=== PATIENT | male | born 1940 | race Caucasian/White ===

== ENCOUNTER 2021-05-15 10:34 | Outpatient (CLI) | payer OTHER, SELFPAY ==
--- NOTE | ~2021-05-15 | XR_ITS ---
XR chest 2V DATE: 05/15/2021 11:00 INDICATION: Right sided pain, back pain TECHNIQUE: PA and lateral views COMPARISON: 09/14/2017 CT pulmonary scan 09/14/2017 PA and lateral chest FINDINGS: Normal heart size. Aortic arch and descending thoracic aortic calcification. Normal heart size. No hilar or mediastinal enlargement. The lungs are moderately hyperinflated but clear of infiltrate or consolidation. No pleural effusion or pulmonary vascular congestion or pneumothorax. IMPRESSION: Moderate hyperinflation; no active cardiopulmonary disease Aortic calcification Reviewed, dictated and finalized at location A.
== END 2021-05-15 10:35 | disposition home or self-care (01) ==
LOC: ANHIMG 10:41
PROVIDERS: PCP Internal Medicine; Visit Provider Internal Medicine
DX: M54.9 Dorsalgia, unspecified (principal); R91.8 Other nonspecific abnormal finding of lung field; I70.0 Atherosclerosis of aorta
CPT/HCPCS: 71046

== ENCOUNTER 2022-01-18 08:43 | Outpatient (CLI) | payer OTHER, SELFPAY ==
--- NOTE | ~2022-01-18 | XR_ITS ---
EXAMINATION: XR hip LT min 2V INDICATION: Left hip pain TECHNIQUE: Two views of the left hip are obtained. COMPARISON: None available FINDINGS: Bone alignment is normal. There is no fracture. Calcified atherosclerosis is noted. IMPRESSION: 1. No acute osseous abnormality. Reviewed, dictated and finalized at location A.
== END 2022-01-18 08:44 | disposition home or self-care (01) ==
PROVIDERS: PCP Internal Medicine; Visit Provider Internal Medicine
DX: M25.552 Pain in left hip (principal)
CPT/HCPCS: 73502

== ENCOUNTER 2022-02-27 08:52 | Outpatient (CLI) | payer OTHER, SELFPAY ==
--- NOTE | ~2022-02-27 | CT_ITS ---
EXAMINATION: CTA neck DATE: 02/27/2022 09:21 INDICATION: Carotid artery disease with stenosis. TECHNIQUE: Computed tomographic angiography (CTA) of the neck was performed with 100 mL Omnipaque-300 intravenous contrast. Multiplanar reconstructions and maximum intensity projection 3D-reconstruction s were created by the technologist on a separate workstation. Automated exposure control and iterativ e reconstruction technique were employed. The dose-length product was mGy-cm. COMPARISON: None. FINDINGS: There is 75% stenosis of the right carotid bulb relative to normal distal artery lumen diameter (NASC ET criteria). There is 60% stenosis of the left carotid bulb relative to normal distal artery lumen d iameter. Aortic arch is normal in caliber with small amount of nonhemodynamically significant atheros clerotic plaque. Vertebral arteries are codominant with additional scattered atherosclerotic plaque. There is likely moderate 50-70% stenosis at the origin of the left vertebral artery. 1.5 cm left thyr oid nodule. Cervical soft tissues are otherwise unremarkable. Emphysema the apices of lungs. Severe c ervical spondylosis. IMPRESSION: 1. 75% stenosis of the right carotid bulb relative to normal distal artery lumen diameter (NASCET cri teria). 2. 60% stenosis of the left carotid bulb relative to normal distal artery lumen diameter. 3. Moderate 50-70% stenosis at the origin of the left vertebral artery. Reviewed, dictated and finalized at location B. IMPRESSION: 1. 75% stenosis of the right carotid bulb relative to normal distal artery lume n diameter (NASCET criteria). 2. 60% stenosis of the left carotid bulb relative to normal distal artery lumen diameter. 3. Moderate 50-70% stenosis at the origin of the left vertebral artery.
[2022-02-27 09:15] LABS: Estimated Glomerular Filt Rate > 60
== END 2022-02-27 08:53 | disposition home or self-care (01) ==
PROVIDERS: PCP Internal Medicine; Visit Provider Internal Medicine
DX: I65.23 Occlusion and stenosis of bilateral carotid arteries (principal)
CPT/HCPCS: 70498; Q9967

== ENCOUNTER 2022-03-25 12:50 | Outpatient (CLI) | payer OTHER, SELFPAY | END 2022-03-25 12:51 | disposition home or self-care (01) | LOC: ANHAUDIO 12:51 | PROVIDERS: PCP Internal Medicine; Visit Provider Otolaryngology | DX: H90.A22 Sensorineural hearing loss, unilateral, left ear, with restricted hearing on the contralateral side (principal); H90.A31 Mixed conductive and sensorineural hearing loss, unilateral, right ear with restricted hearing on the contralateral side | CPT/HCPCS: 92557; 92567 ==

== ENCOUNTER 2022-05-28 17:20 | Emergency (ER) | payer OTHER, SELFPAY ==
[2022-05-28] VITALS (31 sets, daily range): BP systolic 135–164; BP diastolic 60–77; PULSE 62–83; RESP 12–18; TEMP 36.4; O2SAT 93–99
--- NOTE | ~2022-05-28 | CT_ITS ---
EXAMINATION: CT brain wo con DATE: 05/28/2022 17:50 INDICATION: syncope . TECHNIQUE: Computed tomography (CT) of the head was performed without intravenous contrast. The mA wa s adjusted according to patient size. Iterative reconstruction technique was employed. The dose-lengt h product was 605.33 mGy-cm. COMPARISON: 06/01/2019 FINDINGS: No acute intracranial hemorrhage or extra-axial fluid collection. No hydrocephalus, mass, or herniation. No acute ischemic infarct. Unremarkable dural venous sinus attenuation. No acute osseous abnormality. Mucosal thickening and opacification in the paranasal sinuses. The mastoid air cells are poorly pneum atized and contains small effusions. Moderate atrophy and chronic white matter change. Atherosclerotic intracranial calcification. Bilater al lens replacements. IMPRESSION: No acute intracranial process. Reviewed, dictated and finalized at location K.
--- NOTE | ~2022-05-28 | XR_ITS ---
EXAMINATION: XR chest 1V Exam Date/Time: 05/28/2022 17:48 CDT HISTORY: ams Comparison: 05/15/2021. RESULT: Lines, tubes, and devices: None. Lungs and pleura: Clear. Cardiomediastinal silhouette: Stable. Other: No acute osseous or upper abdominal finding. IMPRESSION: No acute cardiopulmonary process. Reviewed, dictated and finalized at location K.
--- NOTE | ~2022-05-28 | CT_ITS ---
Patient Name: Patient Name MR#: Patient MRN Accession#: Accession Numbers EXAMINATION: CTA brain carotid DATE: 05/28/2022 19:03 INDICATION: confusion, syncope TECHNIQUE: Computed tomographic angiography (CTA) of the head was performed withwith 100 mL Omnipaque -350 intravenous contrast. CTA of the neck was performed with intravenous contrast. The dose-length p roduct was 1209.03 mGy-cm. Maximum intensity projection and volume rendered 3D-reconstructions were c reated by the technologist on a separate workstation. COMPARISON: CT brain, same date. CTA neck 02/27/2022. CTA brain 06/01/2019. FINDINGS: CTA NECK: Aortic arch and proximal great vessels: Mild ectasia and arch calcification. Bovine arch. Calcified a nd noncalcified plaque in the brachiocephalic and bilateral subclavian arteries, without severe steno sis. Right common carotid, carotid bifurcation, and internal carotid artery: Calcified plaque at the right bifurcation.There is at least 75%% stenosis of the proximal right internal carotid artery relative t o normal distal artery lumen diameter (NASCET criteria), unchanged. Left common carotid, carotid bifurcation, and internal carotid artery: Calcified plaque at the caroti d bifurcation.There is 60% stenosis of the proximal left internal carotid artery relative to normal d istal artery lumen diameter (NASCET criteria), unchanged. Vertebral arteries: Mild right and moderate-severe left origin stenosis. Nonsignificant calcified patricia ques in the mid and distal bilateral vertebral arteries. Codominant vertebral arteries. Other findings: 12 mm left thyroid nodule. Severe cervical spondylosis. CTA HEAD: No large vessel occlusion, aneurysm, high flow vascular malformation, nidus or extravasation. Bilater al cavernous carotid calcifications, with moderate stenosis on the left. Petrous carotid calcific patricia ques on the right. Posterior communicating arteries not identified. IMPRESSION: 1. No large vessel occlusion. 2. At least 75% stenosis of the right carotid bulb relative to normal distal artery lumen diameter ( NASCET criteria). 60% stenosis of the left carotid bulb. Both stenoses are stable since the prior estefani dy of 02/27/2022. 3. Moderate-severe left vertebral artery origin stenosis. Reviewed, dictated and finalized at location K. IMPRESSION: 1. No large vessel occlusion. 2. At least 75% stenosis of the right carotid bulb relative to normal distal a rtery lumen diameter (NASCET criteria). 60% stenosis of the left carotid bulb. Both stenoses are stable since the prior study of 02/27/2022. 3. Moderate-severe left vertebral artery origin stenosis.
--- NOTE | 2022-05-28 17:33 | ED.NEUROSD ---
HPI - Neuro Symptoms/Deficit General Chief Complaint: Neuro Symptoms/Deficit Stated Complaint: PALE DIAPHORETIC History of Present Illness HPI Narrative: Patient is a 81-year-old male with history of hypertension, hyperlipidemia presenting to the emergency department for evaluation of potential syncopal event, altered mental status that is resolved at the time of assessment. Reportedly, patient was at [facility] obtaining a CTA brain, neck, diagnosed with carotid stenosis bilaterally, and was home after he had eaten dinner. Patient states that he then remembers being awakened by EMS personnel. Reportedly, patient's witnessed the patient become confused, diaphoretic with loss of consciousness. She stated that the patient's eyes rolled in the back of his head and his face was drooping. Patient apparently did have urinary incontinence. Patient at the time of my assessment is back to baseline denying any acute complaints of pain, numbness, weakness. Related Data Home Medications Medication Instructions Recorded Confirmed amlodipine 10 mg tablet 10 mg PO DAILY 01/30/22 04/25/22 aspirin 81 mg capsule 81 mg PO DAILY 01/30/22 04/25/22 clopidogrel 75 mg tablet 75 mg PO DAILY 01/30/22 04/25/22 metoprolol tartrate 25 mg tablet 25 mg PO BID 01/30/22 04/25/22 pantoprazole 40 mg tablet,delayed 40 mg PO QAM 01/30/22 04/25/22 release pravastatin 40 mg tablet 40 mg PO DAILY 01/30/22 04/25/22 tacrolimus 0.1 % topical ointment 1 applic topical BID 01/30/22 04/25/22 triamcinolone acetonide 0.1 % 1 applic topical BID 01/30/22 04/25/22 topical cream Allergies Allergy/AdvReac Type Severity Reaction Status Date / Time No Known Allergies Allergy Verified 05/28/22 17:26 Review of Systems Review of Systems: CONSTITUTIONAL: Denies fever, chills, reports diaphoresis EYES: Denies visual changes, redness, or discharge. ENT: Denies rhinorrhea, congestion, sore throat, or otalgia. CARDIOVASCULAR: Denies chest pain, palpitations, or edema. RESPIRATORY: Denies cough or dyspnea. GASTROINTESTINAL: Denies abdominal pain, nausea, vomiting, or diarrhea. GENITOURINARY: Denies dysuria or hematuria. SKIN: Denies rash or itching. MUSCULOSKELETAL: Denies back pain, joint pain, or myalgia. NEUROLOGIC: Denies headache, numbness, or weakness. [facility] Past Medical History Medical History CAD (coronary artery disease) Cataract Surgical History Surgical History H/O heart artery stent H/O rotator cuff surgery H/O vasectomy History of back surgery History of knee surgery Right TKA 2006 Family History Family History Mother Hypertension Sibling Heart disease Father Family history of prostate cancer in father Social History Social History Smoking status: Current every day smoker Tobacco type: cigarettes Alcohol intake: current Substance use: never Gender identity (if verbalized by the patient): Male Exam Narrative: GENERAL: Awake, alert, conversant HEAD: Normocephalic, atraumatic. EYES: PERRLA and EOMI. ENT: Nares clear, no rhinorrhea or epistaxis. Mucous membranes moist. NECK: Supple. CHEST: No respiratory distress, breathing even and non labored HEART: Regular rate, sinus rhythm ABDOMEN:Non distended, non tender EXTREMITIES: Normal range of motion. No edema. SKIN: Warm, dry, no rash. NEURO:No focal deficits. Alert and oriented x3. Finger to nose intact bilaterally. EOMs intact without nystagmus. No facial droop/asymmetry noted bilaterally. Grimace intact. Intact sensation in face. Hearing intact bilaterally. Shoulder shrug intact. Strength 5/5 bilateral upper extremities. Strength 5/5 bilateral lower extremities. Reflexes 2+ patellar. Heel to boo intact bilaterally. Ambulatory exam deferred. NIHSS s
--- NOTE | 2022-05-28 17:42 | ECG_ITS ---
Measurements Intervals [place] Rate: 64 P: 63 TN: 168 QRS: 40 QRSD: 94 T: 60 QT: 437 QTc: 452 Interpretive Statements SINUS RHYTHM WITH OCCASIONAL VENTRICULAR PREMATURE COMPLEXES RSR' V1 AND V2 BORDERLINE ECG NO PREVIOUS ECG AVAILABLE FOR COMPARISON Electronically Signed On 05-28-2022 18:30:27 CDT by Jacques Dumont M.D.
[2022-05-28] MEDS: SODIUM CHLORIDE 0.9% IV 1,000 ML 999 ML IV CONT (17:56)
[2022-05-28 18:00] LABS: Alveolar/Arterial O2 Gradient 21.3 mmHg; Base Excess ABG -1.3 mEq/l (+/-2.0); Carboxyhemoglobin 0.2 % THb (0-2.0); Device ROOM AIR; Fractional Inspired Oxygen 21 %; HCO3 ABG 22.7 mEq/l (22.0-26.0); Methemoglobin ABG 0.1 %THb (0-1.5); Modified Allen's Test Pass; Oxygen Saturation ABG 96.8 % (95.0-100.0); Oxyhemoglobin 95.6 % THb (90.0-100.0); PCO2 ABG 35.4 mmHg (35.0-45.0); Reduced Hemoglobin 4.1 %THb (0-5.0); Site Drawn RIGHT RADIAL; Total Hemoglobin 12.6 g/dL (12.0-18.0); pH ABG 7.424 (7.350-7.450)
[2022-05-28 18:05] LABS: Basophils Absolute Auto 0.1 K/mm3 (0.0-0.1); Basophils Percent Auto 0.7 % (0.2-1.2); Eosinophils Absolute Auto 0.4 K/mm3 (0-0.3); Eosinophils Percent Auto 4.2 % (0-4.4); Hematocrit 37.1 % (42.0-52.0); Hemoglobin 12.3 g/dL (14.0-18.0); Immature Granulocyte Absolute 0.04 K/mm3 (0.00-0.031); Immature Granulocyte Percent A 0.5 % (0-0.5); Lymphocytes Absolute Auto 2.55 K/mm3 (0.9-3.2); Lymphocytes Percent Auto 29.8 % (18.3-44.2); Mean Corpuscular HGB Conc 33.2 g/dl (32-36); Mean Corpuscular Hemoglobin 32.5 pg (26-34); Mean Corpuscular Volume 98.1 fl (80-100); Mean Platelet Volume 9.7 fl (7.4-10.4); Monocytes Absolute Auto 0.9 K/mm3 (0.1-0.6); Monocytes Percent Auto 10.9 % (2.6-8.5); Neutrophils Absolute Auto 4.6 K/mm3 (1.3-6.7); Neutrophils Percent Auto 53.9 % (45.5-73.1); Platelet Count Result 326 k/mm3 (150-375); Red Blood Count 3.78 M/mm3 (4.6-6.20); Red Cell Distribution Width 12.4 % (11.5-14.5); White Blood Count 8.6 K/mm3 (4.5-10.0)
[2022-05-28 18:19] LABS: Alanine Aminotransferase 22 U/L (6-50); Albumin Level 4.2 g/dL (3.5-5.1); Alkaline Phosphatase 56 U/L (38-126); Anion Gap 11 mmol/L (8-16); Aspartate Amino Transferase 25 U/L (17-59); Bilirubin,Total 0.4 mg/dL (0.2-1.3); Blood Urea Nitrogen 15 mg/dL (9-20); Carbon Dioxide 22 mmol/L (22-30); Chloride 100 mmol/L (98-107); Estimated Glomerular Filt Rate > 60; Glucose 130 mg/dL (65-110); Potassium 3.4 mmol/L (3.4-5.0); Sodium 133 mmol/L (137-145)
[2022-05-28 18:22] LABS: INR 1.1; Prothrombin Time 14.2 Seconds (11.1-14.7)
[2022-05-28 18:23] LABS: Partial Thromboplastin Time 22.8 SECONDS (22.3-36.8)
[2022-05-28 18:29] LABS: Troponin I < 0.012 ng/mL (0.000-0.034)
[2022-05-28 18:34] LABS: Procalcitonin 0.1 ng/mL
[2022-05-28 18:42] LABS: SARS-CoV-2 RNA PCR Negative
--- NOTE | 2022-05-28 19:05 | PC.NURSE ---
RN accidently marked Urine as collected
[2022-05-28 19:38] LABS: Appearance Urine Clear (Clear); Bilirubin Urine 1+ (Negative); Blood Urine Negative (Negative); Color Urine Yellow (Yellow); Glucose Urine UA Negative (Negative); Ketones Urine Negative (Negative); Leukocyte Esterase Ur Negative LEU/UL (Negative); Nitrate Urine Negative (Negative); Protein Urine 1+ mg/dL (Negative); Specific Grav Ur <= 1.005 (1.001-1.035); Urobilinogen Urine 0.2 mg/dL (<2.0); pH Urine 5.5 (5.0-9.0)
[2022-05-28 19:44] LABS: Bacteria Urine Trace /hpf; Mucus Urine Rare /lpf; Squamous Epithelial Cell Urine Rare /hpf (Few); WBC Urine 0-3 /hpf
[2022-05-28 19:46] LABS: Add Urine Microscopic? YES
--- NOTE | 2022-05-28 21:53 | PC.NURSE ---
[facility] called for transfer info at this time.
[2022-05-29] VITALS (12 sets, daily range): BP systolic 111–158; BP diastolic 67–86; PULSE 67–85; RESP 11–17; O2SAT 94–98
--- NOTE | 2022-05-29 01:17 | PC.NURSE ---
La RN at [facility] called at [phone] and report called at this time.
--- NOTE | 2022-05-29 01:58 | PC.NURSE ---
[facility] here for transfer to [facility]. Hospital called at this time and made aware of EMYJose Alivia, , updated with transfer and bed number.
== END 2022-05-29 01:55 | disposition short-term general hospital (02) ==
PROVIDERS: Emergency Provider Emergency Medicine; PCP Internal Medicine
DX: R55 Syncope and collapse (principal); I65.23 Occlusion and stenosis of bilateral carotid arteries; Z20.822 Contact with and (suspected) exposure to COVID-19; I10 Essential (primary) hypertension; E78.5 Hyperlipidemia, unspecified; I25.10 Atherosclerotic heart disease of native coronary artery without angina pectoris; Z79.82 Long term (current) use of aspirin; Z95.5 Presence of coronary angioplasty implant and graft; Z96.651 Presence of right artificial knee joint; F17.210 Nicotine dependence, cigarettes, uncomplicated; I49.3 Ventricular premature depolarization
CPT/HCPCS: 36415; 36600; 70450; 70496; 70498; 71045; 80053; 81001; 82375; 82805; 83050; 84145; 84484; 85025; 85610; 85730; 93005; 96360; 99285; C9803; J7030; Q9967; U0003; U0005

== ENCOUNTER 2023-02-21 08:30 | Outpatient (RCR) | payer OTHER, SELFPAY | END 2023-02-21 23:59 | disposition home or self-care (01) | LOC: ANHAUDIO 08:30 | PROVIDERS: PCP Internal Medicine; Visit Provider Internal Medicine | DX: Z46.1 Encounter for fitting and adjustment of hearing aid (principal) | CPT/HCPCS: 99199; V5261 ==

== ENCOUNTER 2023-07-29 00:14 | Day surgery (SDC) | payer OTHER, SELFPAY ==
[2023-07-22 11:51] VITALS: BMI 29.6
--- NOTE | 2023-07-29 11:13 | PM.HPGS ---
History of Present Illness History of Present Illness Consent: Risks, benefits, and alternatives have been discussed and questions answered. Patient agrees to proceed with procedure. Chief complaint: positive cologuard test Narrative: Wan Obrien is a 82 year old male Referred for colonoscopy. Patient recently found to have positive screening Cologuard test. Patient denies any blood in his stools. Weight appetite bowel movements are reported to be normal. Patient does have a history of atherosclerotic heart disease and peripheral vascular disease. He has had heart and vascular stents placed in the past. He is on Plavix and aspirin on regular basis. Family history is noncontributory. There is no known history of colon or rectal disease. Review of Systems Review of Systems: Review of systems noncontributory. [facility] Past Medical History Medical History CAD (coronary artery disease) Cataract Surgical History Surgical History H/O heart artery stent H/O rotator cuff surgery H/O vasectomy History of back surgery History of knee surgery Right TKA 2006 Family History Family History Mother Hypertension Sibling Heart disease Father Family history of prostate cancer in father Social History Social History Smoking packs per day: 1 Smoking cigarettes per day: 20.0 Years smoked: 60 Smoking pack-years: 60.00 Smoking status: Current every day smoker Tobacco type: cigarettes Additional smoking assessment comments: DOWN TO 10 CIG. A DAY Alcohol intake: current Drinks per week: 16 Alcohol use details: BEEERS AND COCKTAILS Substance use: never Substance use type: does not use Living arrangements: with family Occupation/Education: retired Gender identity (if verbalized by the patient): Male Spiritual care concerns: No Meds Home Medications and Allergies Home Medications Medication Instructions Recorded Confirmed Type amlodipine 10 mg tablet 10 mg PO DAILY 01/30/22 07/29/23 History aspirin 81 mg capsule 81 mg PO DAILY 01/30/22 07/29/23 History clopidogrel 75 mg tablet 75 mg PO DAILY 01/30/22 07/29/23 History metoprolol tartrate 25 mg tablet 25 mg PO BID 01/30/22 07/29/23 History pantoprazole 40 mg tablet,delayed 40 mg PO QAM 01/30/22 07/29/23 History release pravastatin 40 mg tablet 40 mg PO DAILY 01/30/22 07/29/23 History tacrolimus 0.1 % topical ointment 1 applic topical BID 01/30/22 07/29/23 History triamcinolone acetonide 0.1 % 1 applic topical BID 01/30/22 07/22/23 History topical cream Allergies Allergy/AdvReac Type Severity Reaction Status Date / Time CONTRAST Allergy Severe Fainting Uncoded 07/29/23 11:10 Exam Narrative: Physical exam reveals patient to be alert. Vital signs stable. HEENT exam is unremarkable. Patient is anicteric. Lungs are clear to auscultation and percussion. Heart is without murmur or extra sounds. Abdomen bowel sounds are present soft nontender with no organomegaly. Digital external rectal exam normal. Assessment and Plan Assessment and plan (1) Positive colorectal cancer screening using Cologuard test: Code(s): R19.5 - Other fecal abnormalities Status: Acute Assessment and Plan: Patient found to have a positive Cologuard test referred for colonoscopy. Further recommendations may be given after endoscopy.
[2023-07-29 11:22] VITALS: BP 121/58; PULSE 65; RESP 18; TEMP 36.4; O2SAT 98
--- NOTE | 2023-07-29 11:26 | P.PNAN_ITS ---
Anes - Initial Pre Proc Eval Procedure: Operation Date: 07/29/23 12:30 Proposed Procedures p Colonoscopy - Chepe Merino MD Date/Time: 07/29/23 11:26 Surgeon: Chepe Merino MD Pre Op Diagnosis: positive cologuard test Patient Data Age: 82 Gender: M Height: 1.75 m Weight: 91 kg Allergies Allergy/AdvReac Type Severity Reaction Status Date / Time CONTRAST Allergy Severe Fainting Uncoded 07/29/23 11:10 Home Medications Medication Instructions Recorded Confirmed Type amlodipine 10 mg tablet 10 mg PO DAILY 01/30/22 07/29/23 History aspirin 81 mg capsule 81 mg PO DAILY 01/30/22 07/29/23 History clopidogrel 75 mg tablet 75 mg PO DAILY 01/30/22 07/29/23 History metoprolol tartrate 25 mg tablet 25 mg PO BID 01/30/22 07/29/23 History pantoprazole 40 mg tablet,delayed 40 mg PO QAM 01/30/22 07/29/23 History release pravastatin 40 mg tablet 40 mg PO DAILY 01/30/22 07/29/23 History tacrolimus 0.1 % topical ointment 1 applic topical BID 01/30/22 07/29/23 History triamcinolone acetonide 0.1 % 1 applic topical BID 01/30/22 07/22/23 History topical cream Patient hx anesthesia problems: none Family hx anesthesia problems: none Results Review: All pre-operative results and documents have been reviewed as part of the pre- operative evaluation. [facility] Past Medical History Medical History CAD (coronary artery disease) Cataract Surgical History Surgical History H/O heart artery stent H/O rotator cuff surgery H/O vasectomy History of back surgery History of knee surgery Right TKA 2006 Family History Family History Mother Hypertension Sibling Heart disease Father Family history of prostate cancer in father Social History Social History Smoking packs per day: 1 Smoking cigarettes per day: 20.0 Years smoked: 60 Smoking pack-years: 60.00 Smoking status: Current every day smoker Tobacco type: cigarettes Additional smoking assessment comments: DOWN TO 10 CIG. A DAY Alcohol intake: current Drinks per week: 16 Alcohol use details: BEEERS AND COCKTAILS Substance use: never Substance use type: does not use Living arrangements: with family Occupation/Education: retired Gender identity (if verbalized by the patient): Male Spiritual care concerns: No Anes - Eval Final PreProcedure Day of Procedure 07/29/23 11:26 Patient weight: normal Heart: regular rate and rhythm Lungs: clear to auscultation Airway: Mallampati scale class III Neurological: alert and oriented Last oral intake: >/= 8 hours ASA classification: III Emergent: no Anesthetic plan: proceed Anesthesia type and monitoring: general GIVS and standard monitoring Results Review: All pre-operative results and documents have been reviewed as part of the pre- operative evaluation. Informed Consent: The patient's anesthetic plan and its attendant risks and benefits were discussed with the patient/family/POA. Questions were solicited and answers provided to the satisfaction of the patient/family/POA.
[2023-07-29] MEDS: LACTATED RINGERS 1,000 ML 150 ML IV CONT (11:37)
[2023-07-29 12:44] VITALS: BP 117/62; PULSE 57; RESP 28; O2SAT 98
[2023-07-29 12:54] VITALS: BP 141/70; PULSE 58; RESP 15; O2SAT 99
[2023-07-29 13:04] VITALS: BP 144/69; PULSE 62; RESP 17; O2SAT 99
== END 2023-07-29 13:09 | disposition home or self-care (01) ==
PROVIDERS: PCP Internal Medicine; Visit Provider Internal Medicine Gastroenterology
PROC: 0DJD8ZZ Inspection of Lower Intestinal Tract, Via Natural or Artificial Opening Endoscopic (ICD-10-PCS; CPT 45378; principal; 2023-07-29 12:30)
DX: R19.5 Other fecal abnormalities (principal); D12.2 Benign neoplasm of ascending colon; D12.5 Benign neoplasm of sigmoid colon; K64.8 Other hemorrhoids; I25.10 Atherosclerotic heart disease of native coronary artery without angina pectoris; I73.9 Peripheral vascular disease, unspecified; Z79.82 Long term (current) use of aspirin; Z79.02 Long term (current) use of antithrombotics/antiplatelets; Z95.5 Presence of coronary angioplasty implant and graft; F17.210 Nicotine dependence, cigarettes, uncomplicated; Z95.820 Peripheral vascular angioplasty status with implants and grafts
CPT/HCPCS: 45385; 88305; J2704; J7120

== ENCOUNTER 2023-08-26 10:02 | Emergency (ER) | payer OTHER, SELFPAY ==
[2023-08-26 10:09] VITALS: BP 166/78; PULSE 79; RESP 16; TEMP 36.8; O2SAT 98
--- NOTE | 2023-08-26 10:23 | ED.WOUNDLAC ---
HPI - Wound/Laceration General Chief Complaint: Wound/Laceration Stated Complaint: Wound Right Leg Time Seen by Provider: 08/26/23 10:23 Source: patient, RN notes reviewed and old records reviewed Mode of arrival: ambulatory Limitations: no limitations History of Present Illness HPI narrative: 83-year-old male presents to the [facility] with a wound to the right lower leg. 1-2 weeks ago hit his leg on something. States it bruised and had a skin tear. Has been cleaning it and putting Band-Aids on it. Pulled off a Band-Aid and developed to open wounds, superficial, skin tears Related Data Home Medications Medication Instructions Recorded Confirmed amlodipine 10 mg tablet 10 mg PO DAILY 01/30/22 07/29/23 aspirin 81 mg capsule 81 mg PO DAILY 01/30/22 07/29/23 clopidogrel 75 mg tablet 75 mg PO DAILY 01/30/22 07/29/23 metoprolol tartrate 25 mg tablet 25 mg PO BID 01/30/22 07/29/23 pantoprazole 40 mg tablet,delayed 40 mg PO QAM 01/30/22 07/29/23 release pravastatin 40 mg tablet 40 mg PO DAILY 01/30/22 07/29/23 Allergies Allergy/AdvReac Type Severity Reaction Status Date / Time CONTRAST Allergy Severe Fainting Uncoded 08/26/23 10:04 Review of Systems Review of Systems: All systems reviewed & are unremarkable except as noted in HPI and below Constitutional: Constitutional: Reports no additional constitutional complaints Eyes: Eyes: Reports no additional eye complaints ENT: Reports system reviewed and no additional complaints, except as documented Cardiovascular: Cardiovascular: Reports no additional cardiovascular complaints, Denies chest pain and Denies dyspnea Respiratory: Respiratory: Reports no additional respiratory complaints, Denies chest congestion, Denies cough and Denies dyspnea Gastrointestinal: Gastrointestinal: Reports no additional gastrointestinal complaints, Denies abdominal pain, Denies nausea and Denies vomiting Musculoskeletal: Musculoskeletal: Reports no additional musculoskeletal complaints Integumentary/Breasts: Skin/Breast: Reports as per HPI Neurologic: Reports system reviewed and no additional complaints, except as documented Psychiatric: Psychiatric: Reports no additional psychiatric complaints Allergic/Immunologic: Allergic/Immunologic: Reports no additional allergic/immunologic complaints PMFSH Past Medical History Medical History CAD (coronary artery disease) Cataract Surgical History Surgical History H/O heart artery stent H/O rotator cuff surgery H/O vasectomy History of back surgery History of knee surgery Right TKA 2006 Family History Family History Mother Hypertension Sibling Heart disease Father Family history of prostate cancer in father Social History Social History Smoking packs per day: 1 Smoking cigarettes per day: 20.0 Years smoked: 60 Smoking pack-years: 60.00 Smoking status: Current every day smoker Tobacco type: cigarettes Additional smoking assessment comments: DOWN TO 10 CIG. A DAY Alcohol intake: current Drinks per week: 16 Alcohol use details: BEEERS AND COCKTAILS Substance use: never Substance use type: does not use Living arrangements: with family Occupation/Education: retired Gender identity (if verbalized by the patient): Male Spiritual care concerns: No Comments At the time of my signature, I reviewed and agree with the nursing past medical, surgical, social, and family history. There is no relevant family history pertinent to the patient complaint. Exam Const: General: cooperative, healthy appearing, comfortable, no acute distress, well developed, alert and well nourished Nutritional Appearance: well nourished Orientation/consciousness: patient oriented x3 Limitations: no limitations
== END 2023-08-26 10:47 | disposition home or self-care (01) ==
PROVIDERS: Emergency Provider Nurse Practitioner; PCP Internal Medicine
DX: S81.801A Unspecified open wound, right lower leg, initial encounter (principal); I25.10 Atherosclerotic heart disease of native coronary artery without angina pectoris; F17.210 Nicotine dependence, cigarettes, uncomplicated; X58.XXXA Exposure to other specified factors, initial encounter
CPT/HCPCS: 99213; G0463

== ENCOUNTER 2023-09-22 10:13 | Emergency (ER) | payer OTHER, SELFPAY ==
--- NOTE | ~2023-09-22 | XR_ITS ---
EXAMINATION: XR chest 2V DATE: 09/22/2023 10:56 INDICATION: Chest pain TECHNIQUE: PA and lateral views of the chest are obtained. COMPARISON: 05/08/2022 FINDINGS: The lungs are free of acute opacities. No pleural effusion or pneumothorax. The cardiomedia stinal silhouette is normal. There is moderate thoracic spondylosis. A cardiac loop recorder has been inserted in the left anterior chest wall. IMPRESSION: 1. No acute cardiopulmonary abnormality. Reviewed, dictated and finalized at location B. M PROFESSIONAL
--- NOTE | 2023-09-22 10:13 | ECG_ITS ---
Measurements Intervals [place] Rate: 75 P: 64 OR: 164 QRS: 42 QRSD: 93 T: 66 QT: 373 QTc: 419 Interpretive Statements SINUS RHYTHM RSR' V1 V2 BORDERLINE ECG COMPARED TO ECG 05/28/2022 17:28:43 NO SIGNIFICANT CHANGES Electronically Signed On 09-22-2023 17:14:30 ALGEBRAIST by Jacques Dumont M.D.
[2023-09-22 10:16] VITALS: BP 143/65; PULSE 73; RESP 18; TEMP 36.5; O2SAT 99
[2023-09-22 10:27] LABS: Basophils Absolute Auto 0.1 K/mm3 (0.0-0.1); Basophils Percent Auto 0.9 % (0.2-1.2); Eosinophils Absolute Auto 0.2 K/mm3 (0-0.3); Eosinophils Percent Auto 2.8 % (0-4.4); Hematocrit 39.4 % (42.0-52.0); Hemoglobin 12.5 g/dL (14.0-18.0); Immature Granulocyte Absolute 0.02 K/mm3 (0.00-0.031); Immature Granulocyte Percent A 0.3 % (0-0.5); Lymphocytes Absolute Auto 1.98 K/mm3 (0.9-3.2); Lymphocytes Percent Auto 25.4 % (18.3-44.2); Mean Corpuscular HGB Conc 31.7 g/dl (32-36); Mean Corpuscular Hemoglobin 30.8 pg (26-34); Mean Platelet Volume 9.2 fl (7.4-10.4); Monocytes Absolute Auto 0.7 K/mm3 (0.1-0.6); Monocytes Percent Auto 8.6 % (2.6-8.5); Neutrophils Absolute Auto 4.8 K/mm3 (1.3-6.7); Platelet Count Result 324 k/mm3 (150-375); Red Blood Count 4.06 M/mm3 (4.6-6.20); Red Cell Distribution Width 12.5 % (11.5-14.5); White Blood Count 7.8 K/mm3 (4.5-10.0)
[2023-09-22 10:37] LABS: Alanine Aminotransferase 23 U/L (6-50); Albumin Level 4.7 g/dL (3.5-5.1); Alkaline Phosphatase 78 U/L (38-126); Anion Gap 12 mmol/L (8-16); Aspartate Amino Transferase 34 U/L (17-59); Bilirubin,Total 0.7 mg/dL (0.2-1.3); Blood Urea Nitrogen 17 mg/dL (9-20); Calcium 9.3 mg/dL (8.4-10.2); Carbon Dioxide 21 mmol/L (22-30); Chloride 99 mmol/L (98-107); Estimated CRCL calculation 56 ml/min; Estimated Glomerular Filt Rate > 60; Glucose 121 mg/dL (65-110); Lipase 74 U/L (23-300); Potassium 4.1 mmol/L (3.4-5.0); Sodium 132 mmol/L (137-145)
[2023-09-22 10:40] LABS: INR 1.1; Prothrombin Time 14.5 Seconds (11.1-14.7)
[2023-09-22 10:41] LABS: Partial Thromboplastin Time 26.4 SECONDS (22.3-36.8)
[2023-09-22 10:49] LABS: Troponin I < 0.012 ng/mL (0.000-0.034)
[2023-09-22 10:59] VITALS: PULSE 75; O2SAT 100
[2023-09-22 11:01] VITALS: BP 141/71; PULSE 72; RESP 19; O2SAT 99
[2023-09-22] MEDS: BELLADONNA ALK/PHENOB ELIX 10 ML, MAG HYDROX/ALUMINUM HYD/SIMETH 30 ML, LIDOCAINE HCL 2... PO (11:44)
--- NOTE | 2023-09-22 12:06 | ED.GENADULT ---
HPI - General Adult General Chief complaint: Chest Pain Stated complaint: Chest pain Time Seen by Provider: 09/22/23 10:48 History of Present Illness HPI narrative: Patient is an 83-year-old male who presents ER with central chest discomfort. Aching over last week. Constant. Improved on occasion with oxycodone or Tylenol/ ibuprofen. Worse with lying down flat. Unsure if it so she with eating or drinking. Has not tried any tums. Has been attempting to schedule follow-up with his practical nurse before he leaves [facility] on Friday. Related Data Home Medications Medication Instructions Recorded Confirmed amlodipine 10 mg tablet 10 mg PO DAILY 01/30/22 07/29/23 aspirin 81 mg capsule 81 mg PO DAILY 01/30/22 07/29/23 clopidogrel 75 mg tablet 75 mg PO DAILY 01/30/22 07/29/23 metoprolol tartrate 25 mg tablet 25 mg PO BID 01/30/22 07/29/23 pantoprazole 40 mg tablet,delayed 40 mg PO QAM 01/30/22 07/29/23 release pravastatin 40 mg tablet 40 mg PO DAILY 01/30/22 07/29/23 Allergies Allergy/AdvReac Type Severity Reaction Status Date / Time CONTRAST Allergy Severe Fainting Uncoded 08/26/23 10:04 Review of Systems Review of Systems: All systems reviewed & are unremarkable except as noted in HPI and below Constitutional: Constitutional: Reports no additional constitutional complaints ENT: Reports system reviewed and no additional complaints, except as documented Cardiovascular: Cardiovascular: Reports chest pain, Denies rapid heart rate, Denies radiating jaw, neck or arm pain and Denies slow heart rate Respiratory: Respiratory: Reports no additional respiratory complaints Gastrointestinal: Gastrointestinal: Denies abdominal pain, Reports heartburn, Denies nausea and Denies vomiting Genitourinary: Genitourinary: Reports no additional male genitourinary complaints [facility] Past Medical History Medical History CAD (coronary artery disease) Cataract Surgical History Surgical History H/O heart artery stent H/O rotator cuff surgery H/O vasectomy History of back surgery History of knee surgery Right TKA 2006 Family History Family History Mother Hypertension Sibling Heart disease Father Family history of prostate cancer in father Social History Social History Smoking packs per day: 1 Smoking cigarettes per day: 20.0 Years smoked: 60 Smoking pack-years: 60.00 Smoking status: Current every day smoker Tobacco type: cigarettes Additional smoking assessment comments: DOWN TO 10 CIG. A DAY Alcohol intake: current Drinks per week: 16 Alcohol use details: [employer] Substance use: never Substance use type: does not use Living arrangements: with family Occupation/Education: retired Gender identity (if verbalized by the patient): Male Spiritual care concerns: No Exam Narrative: GENERAL: Well-appearing, well-nourished, and in no acute distress. HEAD: Normocephalic, atraumatic. EYES: PERRL and EOMI. ENT: Mucous membranes moist. CHEST: Clear to auscultation. No respiratory distress. HEART: Regular rate and rhythm. Normal peripheral pulses. ABDOMEN: Soft, nontender, nondistended. EXTREMITIES: Normal range of motion. No edema. SKIN: Warm, dry, no rash. NEURO: Alert and oriented x3. PSYCH: Normal mood and affect. Course Course Emergency Course: Patient resting comfortably. Mild improvement with GI cocktail. Troponin negative x2. He has been on the phone with his practical nurse and is scheduled to see them tomorrow. Patient will be discharged. Vital Signs Vital signs: Vital Signs Temperature 97.7 F 09/22/23 10:16 Pulse Rate 73 09/22/23 10:16 Respiratory Rate 18 09/22/23 10:16 Blood Pressure 143/65 H 09/22/23 10:16 Pulse Oximetry
--- NOTE | 2023-09-22 13:17 | ECG_ITS ---
Measurements Intervals [place] Rate: 59 P: 39 NV: 173 QRS: 18 QRSD: 92 T: 44 QT: 433 QTc: 431 Interpretive Statements SINUS BRADYCARDIA BORDERLINE ECG COMPARED TO ECG 09/22/2023 10:17:35 SINUS BRADYCARDIA NOW PRESENT Electronically Signed On 09-22-2023 17:23:01 [employer] by Jacques Dumont M.D.
[2023-09-22 13:46] LABS: Troponin I < 0.012 ng/mL (0.000-0.034)
[2023-09-22 15:04] VITALS: BP 138/86; PULSE 86; RESP 16; O2SAT 98
== END 2023-09-22 15:05 | disposition home or self-care (01) ==
PROVIDERS: Emergency Provider Emergency Medicine; PCP Internal Medicine
DX: R07.89 Other chest pain (principal); I25.10 Atherosclerotic heart disease of native coronary artery without angina pectoris; F17.210 Nicotine dependence, cigarettes, uncomplicated
CPT/HCPCS: 36415; 71046; 80053; 83690; 84484; 85025; 85610; 85730; 93005; 99284; A9270

== ENCOUNTER 2024-06-02 10:52 | Outpatient (CLI) | payer OTHER, SELFPAY ==
--- NOTE | ~2024-06-02 | XR_ITS ---
Lumbosacral Spine: AP and lateral views Clinical History: Pain Findings: No acute fracture seen. There is 6 mm anterolisthesis of L3 over L4. There is 9 mm anteroli sthesis of L5 over S1. Questionable L5 pars interarticularis defects. There is severe degenerative di sc narrowing from L2 through S1. There is severe facet arthropathy throughout the lumbar spine. The s acroiliac joints are normally outlined. There are extensive atherosclerotic calcifications of the aor ta. Impression: Possible L5 pars intraarticular defects, with 9 mm anterolisthesis of L5 over S1. 6 mm anterolisthesis of L3 over L4. Diffuse, severe degenerative spondylosis, as above. Reviewed, dictated and finalized at location M. 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 6 mm anterolisthesis of L3 over L4. Diffuse, severe degenerative spondylosis, as above.
== END 2024-06-02 10:53 | disposition home or self-care (01) ==
PROVIDERS: PCP Internal Medicine; Visit Provider Internal Medicine
DX: M47.817 Spondylosis without myelopathy or radiculopathy, lumbosacral region (principal); M54.50 Low back pain, unspecified
CPT/HCPCS: 72100

== ENCOUNTER 2024-06-09 08:16 | Outpatient (CLI) | payer OTHER, SELFPAY ==
--- NOTE | ~2024-06-09 | CT_ITS ---
CT Scan of the Chest without Contrast: Clinical Indication: Chest wall pain Technique: Contiguous sections were acquired throughout the chest without intravenous contrast. Dose reduction technique was used on this scan by utilizing automated exposure control and iterative recon struction technique. The dose-length product (DLP) was 313.11 mGy-cm. Findings: There is no evidence of any significant mediastinal, hilar or axillary lymphadenopathy. There are ext ensive atherosclerotic calcifications of the coronary arteries and aorta. There is no evidence of pleural or pericardial effusion. The lungs are clear. No pulmonary nodules or infiltrates are noted. Mild emphysema present. Images through the upper abdomen reveal no abnormalities. Impression: Mild emphysema. Atherosclerotic calcifications. Reviewed, dictated and finalized at location . Impression: Mild emphysema. Atherosclerotic calcifications.
== END 2024-06-09 08:17 | disposition home or self-care (01) ==
PROVIDERS: PCP Internal Medicine; Visit Provider Internal Medicine
DX: R07.89 Other chest pain (principal); J43.9 Emphysema, unspecified; I70.0 Atherosclerosis of aorta
CPT/HCPCS: 71250